=== PATIENT | female | born 1965 | race Caucasian/White ===

== ENCOUNTER 2018-12-31 10:50 | Emergency (ER) | payer MEDICAID ==
[~2018-12-31] VITALS: Ht 160 cm; Wt 65.8 kg
--- NOTE | 2018-12-31 10:50 | NUR ---
BIB SELF W C/O LEFT LOWER BACK PAIN OVER A WEEK, WORSE AT NIGHT. TO ER BED 1, HOOKED TO MONITOR, AWAITING MD LOGN
--- NOTE | 2018-12-31 11:00 | NUR ---
DR ANDINO AT BEDSIDE FOR EVAL.
[2018-12-31 11:18] LABS: APPEARANCE,URINE Clear (CLEAR); BILIRUBIN,URINE SMALL (NEGATIVE); BLOOD, URINE Trace-intact Ery/uL (NEGATIVE); COLOR,URINE Dark (YELLOW); KETONES,URINE Trace (NEGATIVE); LEUKOCYTE ESTERASE ,URINE Trace (NEGATIVE); NITRITE, URINE Negative (NEGATIVE); PROTEIN,URINE 100 mg/dl (NEGATIVE); UGLUCOSE Negative (NEGATIVE)
--- NOTE | 2018-12-31 11:35 | NUR ---
OUT FOR XRAY OF LUMBAR SPINE
[2018-12-31 11:48] LABS: BACTERIA,URINE Few /HPF (None Seen); RBC,URINE 0-3 /HPF (0-2); WBC,URINE 0-3 /HPF (0-3)
[2018-12-31 11:49] LABS: SQUAMOUS EPITHELIAL CELL,UR Few /HPF (None Seen)
[2018-12-31 12:55] VITALS: BP 122/67
--- NOTE | 2018-12-31 12:55 | NUR ---
Patient discharged to home in stable condition. Written and verbal after care instructions given. Patient verbalizes understanding of instruction.
== END 2018-12-31 12:56 | disposition home or self-care (01) ==
LOC: ER 10:53
DX: M54.41 Lumbago with sciatica, right side (principal); B02.9 Zoster without complications
CPT/HCPCS: 72110; 81001; 99284; A4606; 81000-TC